=== PATIENT | female | born 1955 | race Two or more races ===

== ENCOUNTER 2018-09-19 09:04 | Inpatient (IN) | payer MEDICARE, MEDICAID | END 2018-09-22 09:50 | disposition home or self-care (01) | LOC: ER 09:04 → ED HOLD 11:22 → PCU 3S 14:00 | DX: A04.72 Enterocolitis due to Clostridium difficile, not specified as recurrent (principal); N18.6 End stage renal disease; J11.1 Influenza due to unidentified influenza virus with other respiratory manifestations; I50.9 Heart failure, unspecified ==